=== PATIENT | female | born 1975 | race Caucasian/White ===

== ENCOUNTER → 2020-12-14 14:19 | Outpatient (CLI) | payer BC, SELFPAY ==
--- NOTE | ~2020-12-14 | MM_ITS ---
EXAMINATION: MM screening [facility] BI w shawn HISTORY: Screening TECHNIQUE: Craniocaudal and mediolateral oblique 3-D tomosynthesis images were obtained and synthetic 2-D images were generated. CAD analysis was submitted and interpreted. COMPARISON: 08/18/2017 BREAST PARENCHYMAL COMPOSITION: The breasts are almost entirely fatty. FINDINGS: There is no evidence of suspicious mass, calcification, or architectural distortion to sugg est malignancy in either breast. There has been no suspicious interval change. IMPRESSION: 1. No mammographic evidence of malignancy. 2. Recommend routine screening mammography in one year. BI-RADS Category 1: Negative Reviewed, dictated and finalized at location A.
--- NOTE | ~2020-12-14 | XR_ITS ---
EXAMINATION: XR chest 2V DATE: 12/14/2020 15:08 INDICATION: Abnormal findings on diagnostic imaging. Seizure. TECHNIQUE: Frontal and lateral views of the chest were obtained. COMPARISON: None. FINDINGS: The chest demonstrates clear lungs without pneumonia, pleural effusion, or pneumothorax. Th e heart size is normal. IMPRESSION: 1. No acute cardiopulmonary disease. Reviewed, dictated and finalized at location A.
== END ==
PROVIDERS: PCP Family Medicine; Visit Provider Physician Assistant
DX: Z12.31 Encounter for screening mammogram for malignant neoplasm of breast (principal); R93.89 Abnormal findings on diagnostic imaging of other specified body structures
CPT/HCPCS: 71046; 77063; 77067

== ENCOUNTER 2021-12-24 10:57 | Outpatient (CLI) | payer BC, SELFPAY ==
[2021-12-24 20:33] LABS: Alanine Aminotransferase 25 U/L (6-35); Albumin Level 4.6 g/dL (3.5-5.1); Alkaline Phosphatase 108 U/L (38-126); Anion Gap 9 mmol/L (8-16); Aspartate Amino Transferase 47 U/L (14-36); Bilirubin,Total 0.5 mg/dL (0.2-1.3); Blood Urea Nitrogen 12 mg/dL (7-17); Calcium 9.6 mg/dL (8.4-10.2); Carbon Dioxide 24 mmol/L (22-30); Chloride 108 mmol/L (98-107); Cholesterol 266 mg/dL (0-200); Estimated Glomerular Filt Rate > 60; Glucose 81 mg/dL (65-110); HDL Direct 47 mg/dL; Potassium 4.1 mmol/L (3.4-5.0); Sodium 141 mmol/L (137-145); Triglycerides 119 mg/dL (<150)
[2021-12-24 20:44] LABS: LDL Cholesterol Direct 179 mg/dL
== END 2021-12-24 10:58 | disposition home or self-care (01) ==
LOC: ANHGOSHLAB 10:59
PROVIDERS: PCP Emergency Medicine; Visit Provider Emergency Medicine
DX: E66.9 Obesity, unspecified (principal)
CPT/HCPCS: 36415; 80053; 80061

== ENCOUNTER → 2022-05-25 10:58 | Outpatient (CLI) | payer BC, SELFPAY ==
--- NOTE | ~2022-05-25 | US_ITS ---
Abdominal Sonogram: Real-time sonographic imaging of the abdomen was performed. Clinical History: Abdominal pain Findings: The liver appears echogenic, with no evidence of mass lesion or bile duct dilatation. Main portal vein demonstrates normal direction of flow. The spleen is normal in size without evidence of focal lesion. The gallbladder is well distended, with multiple apparent gallbladder wall polyps, wil suring up to 8 mm. The common bile duct measures 5 mm. The visualized pancreas, aorta, and IVC are u nremarkable. The right kidney measures 9.5 cm in length and the left kidney measures 10.1 cm. There is no hydronephrosis or renal calculus. Impression: Probable gallbladder wall polyps, measuring up to 8 mm in maximum diameter. Diffuse fatty infiltration of liver. Reviewed, dictated and finalized at [facility]. L COREMAKER Impression: Probable gallbladder wall polyps, measuring up to 8 mm in maximum diameter. Diffuse fatty infiltration of liver.
== END ==
PROVIDERS: PCP Emergency Medicine; Visit Provider Emergency Medicine
DX: R10.12 Left upper quadrant pain (principal); K76.0 Fatty (change of) liver, not elsewhere classified
CPT/HCPCS: 76700

== ENCOUNTER 2022-06-02 08:36 | Outpatient (CLI) | payer BC, SELFPAY ==
--- NOTE | ~2022-06-02 | NM_ITS ---
EXAMINATION: NM hepatobiliary wo pharm DATE: 06/02/2022 11:18 INDICATION: Abdominal pain COMPARISON: None. TECHNIQUE: 4.3 mCi Tc-99m mebrofenin (Choletec) was administered intravenously. Scintigraphic images of the abdomen were obtained for one hour. At the 1 hour time point, the patient drank 8 oz Ensure, and imaging was continued for 60 minutes. Gallbladder ejection fraction was calculated by the technol ogist. FINDINGS: There is normal clearance of radiotracer from the blood pool. There is homogeneous tracer u ptake by the liver. Activity progresses to the bowel and gallbladder. The gallbladder ejection fract ion (GBEF) is 30%. Note that with this technique, normal GBEF >= 33%. IMPRESSION: 1. Gallbladder ejection fraction just below the lower limits of normal consistent with gallbladder d ysfunction or chronic cholecystitis in the appropriate clinical setting. Reviewed, dictated and finalized at location D. E WATER OPERATOR IMPRESSION: 1. Gallbladder ejection fraction just below the lower limits of normal consist ent with gallbladder dysfunction or chronic cholecystitis in the appropriate cl inical setting.
== END 2022-06-02 08:37 | disposition home or self-care (01) ==
LOC: ANHIMG 08:39
PROVIDERS: PCP Emergency Medicine; Visit Provider Emergency Medicine
DX: R10.84 Generalized abdominal pain (principal)
CPT/HCPCS: 78226; A9537

== ENCOUNTER 2022-07-05 00:58 | Day surgery (SDC) | payer BC, SELFPAY ==
[2022-06-22 13:51] VITALS: BMI 35.6
[2022-07-05 08:25] VITALS: BP 116/81; PULSE 100; RESP 18; TEMP 36.3; O2SAT 99
[2022-07-05] MEDS: LACTATED RINGERS 1,000 ML 150 ML IV CONT (08:49)
--- NOTE | 2022-07-05 09:00 | P.PNAN_ITS ---
Anes - Initial Pre Proc Eval Procedure: Operation Date: 07/05/22 09:30 Proposed Procedures p Screening Colonoscopy - Max King MD Date/Time: 07/05/22 09:00 Surgeon: Max King MD Pre Op Diagnosis: neoplasm screening Patient Data Age: 47 Gender: F Height: 1.47 m Weight: 78.8 kg Last Vital Signs Temp 97.4 F L 07/05/22 08:25 Pulse 100 07/05/22 08:25 Resp 18 07/05/22 08:25 BP 116/81 07/05/22 08:25 Pulse Ox 99 07/05/22 08:25 O2 Del Method Room Air 07/05/22 08:25 Allergies Allergy/AdvReac Type Severity Reaction Status Date / Time contrast Allergy Severe Hives Uncoded 07/05/22 08:23 Home Medications Medication Instructions Recorded Confirmed Type gabapentin 100 mg capsule 100 mg PO TID 09/17/19 06/22/22 History levetiracetam 250 mg tablet 750 mg PO BID 06/22/22 06/22/22 History levothyroxine 75 mcg tablet 75 mcg PO DAILY 06/22/22 06/22/22 History lorazepam 0.5 mg tablet 0.5 mg PO BID PRN Seizures 06/22/22 06/22/22 History Patient hx anesthesia problems: none Family hx anesthesia problems: none Results Review: All pre-operative results and documents have been reviewed as part of the pre- operative evaluation. [facility] Past Medical History Medical History Hx of meningitis (~2002) Leukemia Oligodendroglioma (~2014) Papillary carcinoma of thyroid (~2008) Seizure (~2018) Surgical History Surgical History H/O brain surgery (~2018) Family History Family History Grandparent Diabetes mellitus Family history of glaucoma Carcinoma of colon Father Hypertension Social History Social History Smoking status: Never smoker Alcohol intake: never Substance use: never Substance use type: does not use Living arrangements: with family Spiritual care concerns: No Anes - Eval Final PreProcedure Day of Procedure 07/05/22 09:00 Patient weight: obese Heart: regular rate and rhythm Lungs: clear to auscultation Airway: Mallampati scale class III Neurological: alert and oriented Last oral intake: >/= 8 hours ASA classification: III Emergent: no Anesthetic plan: proceed Anesthesia type and monitoring: general GIVS and standard monitoring Results Review: All pre-operative results and documents have been reviewed as part of the pre- operative evaluation. Informed Consent: The patient's anesthetic plan and its attendant risks and benefits were discussed with the patient/family/POA. Questions were solicited and answers provided to the satisfaction of the patient/family/POA.
--- NOTE | 2022-07-05 09:15 | PM.HPGS ---
History of Present Illness History of Present Illness Consent: Risks, benefits, and alternatives have been discussed and questions answered. Patient agrees to proceed with procedure. Chief complaint: neoplasm screening Narrative: Yane Barron is a 47 year old female here for first screening colonoscopy Review of Systems Constitutional: Constitutional: Denies headache(s) and Denies weakness Eyes: Eyes: Denies blurry vision ENT: Reports Normal hearing present, Denies headache(s) and Denies neck pain Cardiovascular: Cardiovascular: Denies chest pain and Denies dyspnea Respiratory: Respiratory: Denies dyspnea Gastrointestinal: Gastrointestinal: Reports no additional gastrointestinal complaints Genitourinary: Genitourinary: Denies dysuria Musculoskeletal: Musculoskeletal: Denies neck pain Integumentary/Breasts: Skin/Breast: Denies dry skin Neurologic: Reports Normal hearing present, Denies headache(s) and Denies weakness Psychiatric: Psychiatric: Denies anxiety Endocrine: Endocrine: Denies change in body appearance Hematologic/Lymphatic: Hematologic/Lymphatic: Denies easy bleeding Allergic/Immunologic: Allergic/Immunologic: Denies urticaria PMFSH Past Medical History Medical History (Updated 07/05/22 @ 09:15 by Max King MD) Colon cancer screening Hx of meningitis (~2002) Leukemia Oligodendroglioma (~2014) Papillary carcinoma of thyroid (~2008) Seizure (~2018) Surgical History Surgical History H/O brain surgery (~2018) Family History Family History Grandparent Diabetes mellitus Family history of glaucoma Carcinoma of colon Father Hypertension Social History Social History Smoking status: Never smoker Alcohol intake: never Substance use: never Substance use type: does not use Living arrangements: with family Spiritual care concerns: No Meds Home Medications and Allergies Home Medications Medication Instructions Recorded Confirmed Type gabapentin 100 mg capsule 100 mg PO TID 09/17/19 06/22/22 History levetiracetam 250 mg tablet 750 mg PO BID 06/22/22 06/22/22 History levothyroxine 75 mcg tablet 75 mcg PO DAILY 06/22/22 06/22/22 History lorazepam 0.5 mg tablet 0.5 mg PO BID PRN Seizures 06/22/22 06/22/22 History Allergies Allergy/AdvReac Type Severity Reaction Status Date / Time contrast Allergy Severe Hives Uncoded 07/05/22 08:23 Vital Signs Vital Signs - 24 hr 07/05/22 08:25 Temperature 97.4 F L Pulse Rate 100 Respiratory Rate 18 Blood Pressure 116/81 Pulse Oximetry 99 Oxygen Delivery Room Air Exam Const: General: comfortable and no acute distress HENMT: Face/Nose/Sinus: Normal nares present Eyes: General: appearance normal, both eyes and all related structures Neck: Neck: no JVD Resp: Auscultation: clear to auscultation bilaterally Cardio: Rate: regular rate Rhythm: regular rhythm GI: Inspection: non-distended GI Palp: Yes Soft to palpation Skin: General skin exam: normal color Neuro: General: gait normal Speech: normal speech Extrem: General: normal to inspection Psych: Mental Status: mental status grossly normal Assessment and Plan Assessment and plan (1) Colon cancer screening: Code(s): Z12.11 - Encounter for screening for malignant neoplasm of colon Status: Acute Assessment and Plan: colonoscopy
[2022-07-05 09:33] VITALS: BP 98/60; PULSE 75; RESP 19; O2SAT 94
[2022-07-05 09:43] VITALS: BP 101/68; PULSE 81; RESP 18; O2SAT 93
[2022-07-05 09:53] VITALS: BP 111/70; PULSE 74; RESP 20; O2SAT 94
== END 2022-07-05 10:05 | disposition home or self-care (01) ==
PROVIDERS: PCP Emergency Medicine; Visit Provider Internal Medicine Gastroenterology
PROC: 0DJD8ZZ Inspection of Lower Intestinal Tract, Via Natural or Artificial Opening Endoscopic (ICD-10-PCS; CPT 45378; principal; 2022-07-05 09:30)
DX: Z12.11 Encounter for screening for malignant neoplasm of colon (principal); D12.3 Benign neoplasm of transverse colon; Z85.850 Personal history of malignant neoplasm of thyroid; E66.9 Obesity, unspecified; Z68.36 Body mass index [BMI] 36.0-36.9, adult
CPT/HCPCS: 45380; 88305; J2704; J7120

== ENCOUNTER → 2022-08-01 12:20 | Outpatient (CLI) | payer BC, SELFPAY ==
--- NOTE | ~2022-08-01 | MM_ITS ---
EXAMINATION: MM screening [facility] BI w shawn HISTORY: Screening mammogram TECHNIQUE: Craniocaudal and mediolateral oblique 3-D tomosynthesis images were obtained and synthetic 2-D images were generated. CAD analysis was submitted and interpreted. COMPARISON: 12/14/2020, 08/18/2017 BREAST PARENCHYMAL COMPOSITION: The breasts are almost entirely fatty. FINDINGS: No suspicious mass, calcification, or architectural distortion are identified in either anthony ast to suggest malignancy. There has been no suspicious interval change. IMPRESSION: 1. No mammographic evidence of malignancy. 2. Recommend routine screening mammography in one year. BI-RADS Category 1: Negative Reviewed, dictated and finalized at location A.
== END ==
PROVIDERS: PCP Emergency Medicine; Visit Provider Emergency Medicine
DX: Z12.31 Encounter for screening mammogram for malignant neoplasm of breast (principal)
CPT/HCPCS: 77063; 77067

== ENCOUNTER 2023-02-21 10:56 | Outpatient (RCR) | payer BC, SELFPAY ==
--- NOTE | 2023-02-21 12:01 | OPREHPOC ---
Outpatient Therapy Plan of Care This is a Multidisciplinary Plan of Care that may contain components documented by all disciplines (PT, OT, and ST.) PT Problem 1 PT Problem #1 Knowledge Deficit PT Goal 1 Goal 1* indep with HEP PT Problem 2 PT Problem #2 Impaired Strength PT Goal 1 Goal increase R LE strength to improve gait and balance skills 1* pt perform mat exercises x 20 reps with good control 2* single leg standing x 10 seconds 3* sitting ankle DF x 10 reps, same range as L ankle 4* sitting ankle circles x 10 reps with good control PT Problem 3 PT Problem #3 Impaired Functional Mobil PT Goal 1 Goal improve balance and gait skills: 1* Carrington balance score of 56/56 2* 2 minute walk test distance of 450' 3* 5 reps sit/stand time of 16 seconds
--- NOTE | 2023-02-21 12:01 | PTOPEVAL1 ---
Assessment and note entered by Maria Isabel Christianson, PT Evaluation Information Assessment Status Evaluation Diagnosis musculoskeletal disorder, R leg weakness Onset about 6 months Subjective Information gradually more weakness in R leg, after each seizure, feel like leg is weaker; ACTIVITY: live alone, is indep with home tasks, except yard mowing and driving; on disability, not working; do not use assistive device for walking; no falls do not do any fitness exercises; GOAL: better balance; Reported Pain Level Pain Score Self Report Additional Pain Score Comments no pain in her leg, but it feels weighted/heavy; have to concentrate with walking or will trip over R foot; Assessment PT Clinical Summary Ita has the diagnosis of R LE weakness, musculoskeletal disorder. She has history of seizures, brain cancer, radiation and chemotherapy Seizures occur in her R leg up to her R trunk. She is taking meds, but continues to have seizures lasting 20-30 minutes. She is indep with in home tasks and does not work or drive. She does not perform fitness exercises at home. With the evaluation: she has weakness and decreased motor control of R LE, walking with flat foot pattern and decreased control with placement of R leg with stepping forward; Carrington balance score of 51/56; single leg standing R 2/ L 5 seconds; decreased R ankle DF and ankle [place] ability; 2 minute walking test distance of 375'. Skilled PT services are indicated to increase R LE strength, gait and balance skills, to improve mobility and education for home exercises and gait safety. In discussion of the plan of care, with recommendation for 2x/wk for 4 weeks, pt is not sure she wants to come back. She does not drive and would have to have her parents bring her here. Discussed with her [employer], [employer] as options for transportation--she was not interested in using them. She wants to do the exercises on her own and will call if s
--- NOTE | 2023-04-03 10:07 | PTOPDC ---
Assessment and note entered by Maria Isabel Christianson, PT Discharge Information Assessment Status Discharge - Pt Not Present Diagnosis musculoskeletal disorder, R leg weakness Onset about 6 months Assessment PT Clinical Summary PHYSICAL THERAPY DISCHARGE Yane attended the PT evaluation on Feb 21 and did not return for any further treatment. She will be discharged from PT at this time. The goals were not addressed. Plan of Care PT Services Indicated No
== END 2023-04-03 11:55 | disposition home or self-care (01) ==
LOC: ANHPT 10:56
PROVIDERS: PCP Emergency Medicine; Visit Provider Emergency Medicine
DX: R29.898 Other symptoms and signs involving the musculoskeletal system (principal); R56.9 Unspecified convulsions
CPT/HCPCS: 97110; 97161

== ENCOUNTER 2023-11-30 13:29 | Outpatient (CLI) | payer MEDICARE, SELFPAY ==
--- NOTE | ~2023-11-30 | MM_ITS ---
EXAMINATION: MM screening [facility] BI w shawn HISTORY: Screening TECHNIQUE: Craniocaudal and mediolateral oblique 3-D tomosynthesis images were obtained and synthetic 2-D images were generated. CAD analysis was submitted and interpreted. COMPARISON: Comparison to multiple prior studies sequentially, with oldest reviewed study dated 07/2017. BREAST PARENCHYMAL COMPOSITION: Not Dense. The breasts are almost entirely fatty. FINDINGS: There is no evidence of suspicious mass, calcification, or architectural distortion to sugg est malignancy in either breast. There has been no suspicious interval change. IMPRESSION: 1. No mammographic evidence of malignancy. 2. Recommend routine screening mammography in one year. BI-RADS Category 1: Negative Reviewed, dictated and finalized at location B.
== END 2023-11-30 13:30 ==
LOC: MICIMG 13:31
PROVIDERS: Visit Provider Emergency Medicine
DX: Z12.31 Encounter for screening mammogram for malignant neoplasm of breast (principal)
CPT/HCPCS: 77063; 77067

== ENCOUNTER 2024-02-17 10:02 | Outpatient (CLI) | payer MEDICARE, SELFPAY ==
--- NOTE | ~2024-02-17 | US_ITS ---
US abdomen limited DATE: 02/17/2024 10:51 INDICATION: Left upper quadrant abdominal pain radiating to left back TECHNIQUE: Imaging was performed at the left upper quadrant. COMPARISON: 05/25/2022 complete abdominal ultrasound examination FINDINGS: The left kidney measures approximately 9.5 cm length, within normal range. No splenic mass lesion is noted. The left kidney measures approximately 10.5 cm length. No left renal mass lesion or hydronephrosis is evident. IMPRESSION: No significant abnormality detected Reviewed, dictated and finalized at Location A. Reviewed, dictated and finalized at location A.
== END 2024-02-17 10:03 | disposition home or self-care (01) ==
LOC: MICIMG 10:02
PROVIDERS: PCP Student in an Organized Health Care Education/Training Program; Visit Provider Student in an Organized Health Care Education/Training Program
DX: R10.12 Left upper quadrant pain (principal); M54.9 Dorsalgia, unspecified
CPT/HCPCS: 76705

== ENCOUNTER 2024-12-20 13:58 | Outpatient (CLI) | payer MEDICARE, SELFPAY ==
--- NOTE | ~2024-12-20 | MM_ITS ---
EXAMINATION: MM screening [facility] BI w shawn HISTORY: Screening TECHNIQUE: Craniocaudal and mediolateral oblique 3-D tomosynthesis images were obtained and synthetic 2-D images were generated. CAD analysis was submitted and interpreted. COMPARISON: Mammograms from 11/30/2023 and 08/01/2022 BREAST PARENCHYMAL COMPOSITION: Not Dense: The breasts are almost entirely fatty. FINDINGS: There is no evidence of suspicious mass, calcification, or architectural distortion to suggest malignancy in either breast. [There has been no significant interval change. IMPRESSION: 1. No mammographic evidence of malignancy. Recommend routine screening mammography in one year. BI-RADS Category 1: Negative Reviewed, dictated, and finalized at Location A. Reviewed, dictated and finalized at location Q. IMPRESSION: 1. No mammographic evidence of malignancy. Recommend routine screening mammogra phy in one year. BI-RADS Category 1: Negative
== END 2024-12-20 13:59 | disposition home or self-care (01) ==
PROVIDERS: Visit Provider Nurse Practitioner Family
DX: Z12.31 Encounter for screening mammogram for malignant neoplasm of breast (principal)
CPT/HCPCS: 77063; 77067

== ENCOUNTER 2025-04-02 11:42 | Outpatient (CLI) | payer MEDICARE, SELFPAY ==
[2025-04-02 12:33] LABS: Hematocrit 39.4 % (37.0-47.0); Hemoglobin 12.7 g/dL (12.0-15.0); Mean Corpuscular HGB Conc 32.2 g/dl (32-36); Mean Corpuscular Hemoglobin 29.1 pg (26-34); Mean Corpuscular Volume 90.2 fl (80-100); Platelet Count Result 364 k/mm3 (150-375); Red Blood Count 4.37 M/mm3 (4.2-5.4); White Blood Count 5.4 K/mm3 (4.5-10.0)
[2025-04-02 12:52] LABS: Alanine Aminotransferase 19 U/L (6-35); Albumin Level 4.4 g/dL (3.5-5.1); Alkaline Phosphatase 92 U/L (38-126); Anion Gap 8 mmol/L (4-12); Aspartate Amino Transferase 23 U/L (14-36); Bilirubin,Total 0.5 mg/dL (0.2-1.3); Blood Urea Nitrogen 11 mg/dL (7-17); Calcium 9.4 mg/dL (8.4-10.2); Carbon Dioxide 23 mmol/L (22-30); Chloride 109 mmol/L (98-107); Cholesterol 215 mg/dL (0-200); Estimated Glomerular Filt Rate > 60; Glucose 88 mg/dL (65-110); HDL Direct 43 mg/dL; Potassium 3.7 mmol/L (3.4-5.0); Sodium 140 mmol/L (137-145); Total Protein 7.6 g/dL (6.3-8.2); Triglycerides 116 mg/dL (<150)
--- OUTSIDE RECORDS SUMMARY | 2025-04-02 13:57 | XMS_ITS | Encounter Summary ---
Author Organization [facility] Address [address] [place] [address] Care Team Providers Care Finishing Powder Press Operator Name Role Phone Regan Jade MD Primary Care Provider [phone] Reason for Visit * Reason Comments Medication Refill Encounter Details Date Type Department Care Team (Late st Contact Info) Description 06/19/2019 Refill [facility] [place] [facility] [address] [place] [address] Alysia Smyth MD [address] [address] Social History Tobacco Use Types Packs/Day Years Used Date Smoking Tobacco: Never Smokeless Tobacco: Never Alcohol Use Standard Drinks/Week Comments Yes 0 (1 standard drink = 0.6 oz pur e alcohol) occasionally Comments No Sex and Gender Information Value Date Recorded Sex Assigned at Not on file Legal Sex 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 Gender Identity Not on file Sexual Orientation Not on file documented as of this encounter Miscellaneous Notes * Telephone Encounter - Mari Wick - 06/19/2019 12:43 PM CST Last Office Visit: 01/08/2019 Last Ordered: 01/08/2019 #90 with 2 refills DESIGN INTERN documented in this encounter Plan of Treatment Upcoming Encounters Date Type Department Care Team (Late st Contact Info) Description 11/24/2025 11:15 AM CDT Office Visit [facility]ocrinology [address] [place] [address] Brian Rowley MD [address] [place] [address] 01/09/2026 11:00 AM CDT Office Visit [facility] [address] [place] [address] Deja Bush MD [address] [place] [address] documented as of this encounter Visit Diagnoses Not on filedocumented in this encounter Additional Health Concerns Infection Onset Date Last Indicated Resolved Time R/O C. diff 07/20/2024 07/20/2024 07/21/2024 7:30 AM CDT R/O C. diff 07/21/2024 07/21/2024 07/22/2024 7:30 AM CDT documented as of this encounter Care Teams Finishing Powder Press Operator Relationship Specialty Start Date End Date Regan Jade MD [address] [place] [address] PCP - General Family Practice 07/20/24 11/20/24 wander wray Nurse Practitioner Nurse Practitioner Adult Health 04/20/24 documented as of this encounter
--- OUTSIDE RECORDS SUMMARY | 2025-04-02 13:57 | XMS_ITS | Encounter Summary ---
Author Organization [facility] Address [address] [place] [address] Care Team Providers Care Wheel Alignment Mechanic Name Role Phone Regan Jade MD Primary Care Provider [phone] Encounter Details Date Type Department Care Team (Latest Contact Info) Description 08/21/2002 Inpatient Historical [facility] [employer] Ángel Adame Matt Rashaun Gay MD [address] [address] -x0 (Work) BENIGN SHELLY CEREBR MENINGES (CMS/HCC) (Primary Dx) Social History Tobacco Use Types Packs/Day Years Used Date Smoking Tobacco: Never Assessed Comments Unknown Sex and Gender Information Value Date Recorded Sex Assigned at Not on file Legal Sex Female 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 Gender Identity Not on file Sexual Orientation Not on file documented as of this encounter Plan of Treatment Upcoming Encounters Date Type Department Care Team (Late st Contact Info) Description 11/24/2025 11:15 AM CDT Office Visit [facility] Endocrinology [address] [place] [address] Brian Rowley MD [address] [place] [address] 01/09/2026 11:00 AM CDT Office Visit [facility] Neu[facility] [address] [place] [address] Deja Bush MD [address] [place] [address] documented as of this encounter Visit Diagnoses Diagnosis Benign neoplasm of cerebral meninges (CMS/HCC)- Primary Benign neoplasm of cerebral meninges documented in this encounter Additional Health Concerns Infection Onset Date Last Indicated Resolved Time R/O C. diff 07/20/2024 07/20/2024 07/21/2024 7:30 AM CDT R/O C. diff 07/21/2024 07/21/2024 07/22/2024 7:30 AM CDT documented as of this encounter Care Teams Wheel Alignment Mechanic Relationship Specialty Start Date End Date Regan Jade MD [address] [place] [id number] PCP - General Family Practice 07/20/24 11/20/24 wander wray Nurse Practitioner Nurse Practitioner Adult Health 04/20/24 documented as of this encounter
--- OUTSIDE RECORDS SUMMARY | 2025-04-02 13:57 | XMS_ITS | Encounter Summary ---
Author Organization [facility] Address [address] [place] [address] Care Team Providers Care Hand Collator Name Role Phone Regan Jade MD Primary Care Provider [phone] Encounter Details Date Type Department Care Team (Late st Contact Info) Description 10/30/2003 Outpatient Historical [facility] DEPT Rashaun Gay MD [address] [address] -x0 (Work) BENIGN SHELLY CEREBR MENINGES (CMS/HCC) (Primary Dx) Social History Tobacco Use Types Packs/Day Years Used Date Smoking Tobacco: Never Assessed Comments Unknown Sex and Gender Information Value Date Recorded Sex Assigned at Not on file Legal Sex 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 Gender Identity Not on file Sexual Orientation Not on file documented as of this encounter Plan of Treatment Upcoming Encounters Date Type Department Care Team (Late st Contact Info) Description 11/24/2025 11:15 AM CDT Office Visit [facility] Endocrinology [address] [place] [address] Brian Rowley MD [address] [place] [address] 01/09/2026 11:00 AM CDT Office Visit [facility] Neurology [address] [place] [address] Deja Bush MD [address] [place] [address] documented as of this encounter Visit Diagnoses Diagnosis Benign neoplasm of cerebral meninges (CMS/HCC)- Primary Benign neoplasm of cerebral meninges documented in this encounter Additional Health Concerns Infection Onset Date Last Indicated Resolved Time R/O C. diff 07/20/2024 07/20/2024 07/21/2024 7:30 AM CDT R/O C. diff 07/21/2024 07/21/2024 07/22/2024 7:30 AM CDT documented as of this encounter Care Teams Hand Collator Relationship Specialty Start Date End Date Regan Jade MD [address] [place] [address] PCP - General Family Practice 07/20/24 11/20/24 wander wray Nurse Practitioner Nurse Practitioner Adult Health 04/20/24 documented as of this encounter
--- OUTSIDE RECORDS SUMMARY | 2025-04-02 13:57 | XMS_ITS | Clinical Summary ---
Author Organization [facility] Address [address] [place] [address] Care Team Providers Care Nurse Licensed Practical Name Role Phone Philippe Patino MD Primary Care Provider [phone] Source Comments [facility],non-owned Affiliates and Associated Physician Practices is amultiple site organization consisting of ambulatory clinics and hospital sitesin [place], [place], [place] and [place]. This disclosure is being madepursuant to the Care Everywhere program and may not contain all information available regarding this patient. Last updated 18.[employer] [facility] Allergies Active Allergy Reactions Criticality Noted Date Comments Contrast-Iodinated Agents For Ct/Other Skin Reactions High 01/09/2015 Medications * Be aware that medications may not be up to date on this document. Alwaysverify current medications with the patient. 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, Grade III Family History Medical History Relation Name Comments Hypertension Father 69 Status: Alive None Known Mother 68 Status: Alive Heart Disease Paternal Grandfather 86 Status : Cancer Paternal Grandmother 81 cervica l; Status: Diabetes Paternal Grandmother 81 type II None Known Sister 41 Status: Alive Relation Name Status Comments Father 69 Mother 68 Paternal Grandfather 86 Paternal Grandmother 81 Sister 41 Social History Tobacco Use Types Packs/Day Years Used Date Smoking Tobacco: Never Smokeless Tobacco: Never Alcohol Use Standard Drinks/Week Comments Yes 0 (1 standard drink = 0.6 oz pur e alcohol) Comments No Sex and Gender Information Value Date Recorded Sex Assigned at Not on file 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 Gender Identity Not on file Sexual Orientation Not on file Last Filed Vital Signs Vital Sign Reading Time Taken Comments Blood Pressure 119/73 08/17/2017 10:14 AM CDT Pulse 70 12/27/2016 10:54 AM CDT Temperature 37.1 C (98.8 F) 08/17/2017 10:14 AM CDT Respiratory Rate 16 12/27/2016 10:5 4 AM CDT Oxygen Saturation 99% 04/13/2015 11: 21 AM RECREATIONAL THERAPY TECHNICIAN Inhaled Oxygen Concentration - - Weight 77.4 kg (170 lb 11.2 oz) 018 10:14 AM CDT Height 147.3 cm (4' 10) 08/17/2017 10: 14 AM CDT Body Mass Index 35.68 08/17/2017 10:14 AM CDT Plan of Treatment Health Maintenance Due Date Last Done Comments COLOGUARD (AGES 45-75) - COLON CA SCREENING 1975 COLON MONITORING 1975 COLONOSCOPY - COLON CA SCREENING 1975 CT COLONOGRAPHY - COLON CA SCREENING 1975 Colorectal Cancer Screening 1975 FIT - COLON CA SCREENING 1975 FLEX SIG - COLON CA SCREENING 1975 LIPID TESTING 1975 MAMMOGRAM 1975 HIV SCREENING 1990 DTAP/TDAP/TD VACCINES (1 - Tdap) 1994 HEPATITIS B VACCINE (1 of 3 - 19+ 3-dose series) 1994 SCREENING FOR DIABETES 12/28/2019 7, 06/22/2016, 12/30/2015, Additional history exists DEPRESSION SCREENING 04/17/2024 COVID-19 VACCINE ( - 2024- season) 2024 INFLUENZA VACCINE (#1) 2024 ZOSTER VACCINE (1 of 2) 2025 HEPATITIS C SCREENING Completed 01/12/2015 HIB VACCINE Aged Out No longer eligi ble based on patient's age to complete this topic HPV VACCINE Aged Out No longer eligi ble based on patient's age to complete this topic MENINGOCOCCAL (Group B) VACCINE SHARED DECISION-MAKING Aged Out No longer eligible based on patient's age to complete this topic MENINGOCOCCAL GROUPS A/C/Y/W VACCINE Aged Out No longer eligible based on patient's age to complete this topic Procedures Procedure Name Priority Date/Time Associated Diagnosis Comments COMPREHENSIVE METABOLIC PANEL Routine 12/27/2016 10:49 AM CDT HEPATITIS B + C PANEL Routine 01/12/2015 10:13 AM CDT from Last 3 Months or Most Recently Relevant to Health Maintenance Results * COMPREHENSIVE METABOLIC PANEL (12/27/2016 10:49 AM CDT) Glucose 80 65 - 99 mg/dL [facility] BUN 11 6 - 24 mg/dL [facility] Creatinine 0.66 0.57 - 1.00 mg/dL [facility] eGFR non- 110 >59 mL/min/1.7 3 [facility] eGFR 127 >59 mL/min/1.7 3 [facility] BUN/Creatinine Ratio 17 9 - 23 [facility] Sodium 144 134 - 144 mmol/L [facility] Potassium 4.7 3.5 - 5.2 mmol/L [facility] Chloride 104 96 - 106 mmol/L [facility] CO2 21 18 - 29 mmol/L [facility] Calcium 9.1 8.7 - 10.2 mg/dL [facility] Protein Total 7.0 6.0 - 8.5 g/dL [facility] Albumin 4.1 3.5 - 5.5 g/dL [facility] Globulin Total 2.9 1.5 - 4.5 g/dL [facility] Albumin/Globulin Ratio 1.4 1.2 - 2.2 [facility] Bilirubin Total 0.4 0.0 - 1.2 mg/dL [facility] ([facility]) Alkaline Phosphatase 92 39 - 117 IU/L [facility] ([facility]) AST 14 0 - 40 IU/L [facility] ([facility]) ALT 13 0 - 32 IU/L [facility] ([facility]) Blood specimen (specimen) BLOOD SPECIMEN / Unknown 12/27/2016 10:49 AM CDT 12/27/2016 Narrative [facility] ([facility]) - 12/28/2016 3:08 AM CDT Performed at: [facility] [id number] Program Engineer: Rafy Noriega PhD, Phone: [phone] us Joann Lal MD LAB - CHEMISTRY ORDERABLES Final Result [facility] ([facility]) [address] [place] [address], [facility] * HEPATITIS B + C PANEL (01/12/2015 10:13 AM CDT) Pathologist [facility] Hepatitis B Virus Surface Antigen Screen Negative Negative [facility] ([facility]) Hepatitis Be Virus Antigen Negative Negative [facility] ([facility]) Hepatitis B Core Virus Antibody IgM Negative Negative [facility] ([facility]) Hepatitis B Core Virus Antibody Total Negative Negative [facility] ([facility]) Hepatitis Be Virus Antibody Negative Negative [facility] ([facility]) Hepatitis B Virus Surface Antibody Non Reactive [facility] ([facility]) Comment: Non Reactive: Inconsistent with immunity, less than 10 mIU/mL Reactive: Consistent with immunity, greater than 9.9 mIU/mL Hepatitis C Antibody <0.1 0.0 - 0.9 s/co ratio [facility] ([facility]) 01/12/2015 10:1 3 AM CDT 01/12/2015 12:08 PM CDT Narrative [facility] ([facility]) - 01/13/2015 8:11 PM CDT Performed at: [facility] [id number] Program Engineer: Rafy Noriega PhD, Phone: [phone] us Lety Haddad TUBE PULLER-REFINERY OPERATOR [employer] LAB - SEROLOGY ORDERAB LES Final Result [facility]) [address] [place] [address] from Last 3 Months or Most Recently Relevant to Health Maintenance Insurance [facility] Care Teams Nurse Licensed Practical Relationship Specialty [place] [id number] [place] [phone] PCP - General 07/28/22
--- OUTSIDE RECORDS SUMMARY | 2025-04-02 13:57 | XMS_ITS | Encounter Summary ---
Author Organization [facility] Address 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) Social History Tobacco Use Types Packs/Day Years Used Date Smoking Tobacco: Never Assessed Comments Unknown Sex and Gender Information Value Date Recorded Sex Assigned at Not on file 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 Gender Identity Not on file Sexual Orientation Not on file documented as of this encounter Plan of Treatment Upcoming Encounters Date Type Department Care Team (Late st Contact Info) Description 11/24/2025 11:15 AM CDT Office Visit [facility] Endocrinology [address] [facility] [address] [place] [address] Brian Rowley MD [address] [facility] [address] [place] [address] 01/09/2026 11:00 AM CDT Office Visit [facility] Neurology [address] [place] [address] Deja Bush MD [address] [place] [address] documented as of this encounter Visit Diagnoses Diagnosis Benign neoplasm of cerebral meninges (CMS/HCC)- Primary Benign neoplasm of cerebral meninges documented in this encounter Additional Health Concerns Infection Onset Date Last Indicated Resolved Time R/O C. diff 07/20/2024 07/20/2024 07/21/2024 7:30 AM CDT R/O C. diff 07/21/2024 07/21/2024 07/22/2024 7:30 AM CDT documented as of this encounter Care Teams Piping Design Specialist Relationship Specialty Start Date End Date Regan Jade MD [address] [place] [address] PCP - General Family Practice 07/20/24 11/20/24 wander wray Nurse Practitioner Nurse Practitioner Adult Health 04/20/24 documented as of this encounter
--- OUTSIDE RECORDS SUMMARY | 2025-04-02 13:57 | XMS_ITS | Encounter Summary ---
Author Organization [facility] Address [address] [place] [address] Care Team Providers Care Certified Rehabilitation Counselor Name Role Phone Regan Jade MD Primary Care Provider [phone] Encounter Details Date Type Department Care Team (Late st Contact Info) Description 10/09/2002 Outpatient Historical HIS MRI DEPT Rashaun Gay MD [address] [facility] [address] [address] -x0 (Work) SURGERY FOLLOWUP, OTHER (Primary Dx) Social History Tobacco Use Types Packs/Day Years Used Date Smoking Tobacco: Never Assessed Comments Unknown Sex and Gender Information Value Date Recorded Sex Assigned at Not on file 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 Gender Identity Not on file Sexual Orientation Not on file documented as of this encounter Plan of Treatment Upcoming Encounters Date Type Department Care Team (Late st Contact Info) Description 11/24/2025 11:15 AM CDT Office Visit [facility] Endocrinology [address] [facility] [address] [place] [address] Brian Rowley MD [address] [facility] [address] [place] [address] 01/09/2026 11:00 AM CDT Office Visit [facility] Neurology [address] [facility] [address] [place] [address] Deja Bush MD [address] [place] [address] documented as of this encounter Visit Diagnoses Diagnosis Follow-up examination, following other surgery- Primary documented in this encounter Additional Health Concerns Infection Onset Date Last Indicated Resolved Time R/O C. diff 07/20/2024 07/20/2024 07/21/2024 7:30 AM CDT R/O C. diff 07/21/2024 07/21/2024 07/22/2024 7:30 AM CDT documented as of this encounter Care Teams Certified Rehabilitation Counselor Relationship Specialty Start Date End Date Regan Jade MD [address] [place] [address] PCP - General Family Practice 07/20/24 11/20/24 wander wray Nurse Practitioner Nurse Practitioner Adult Health 04/20/24 documented as of this encounter
--- OUTSIDE RECORDS SUMMARY | 2025-04-02 13:57 | XMS_ITS | Encounter Summary ---
Author Organization [facility] Address [address] [place] [address] Care Team Providers Care Rn Appeals Name Role Phone Regan Jade MD Primary Care Provider [phone] Reason for Visit * Reason Onset Date Comments Medication Assistance 08/06/2024 Encounter Details Date Type Department Care Team (Late st Contact Info) Description 08/06/2024 Telephone [facility] [address] [place] [address] Deja Bush MD [email or web address] [place] [address] Medication Assistance Social History Tobacco Use Types Packs/Day Years Used Date Smoking Tobacco: Never Smokeless Tobacco: Never Alcohol Use Standard Drinks/Week Comments Not Currently 0 (1 standard drink = 0.6 oz pur e alcohol) occasionally Feeling Safe Answer Date Recorded Are you in a relationship wi th someone who hurts you emotionally and/or physically? No 07/20/2024 Food Insecurity Answer Date Recorded Patient needs follow up regardin 08/07/2024 Transportation Needs Answer Date Record ed Patient needs follow up regardin 08/07/2024 Housing Stability Answer Date Recorded Social/Environmental Concerns No concerns Utility Needs Answer Date Recorded Patient needs follow up regardin 08/07/2024 Comments No Sex and Gender Information Value Date Recorded Sex Assigned at Not on file Legal Sex Female 5:21 AM ENGAGEMENT MGR Gender Identity Not on file Sexual Orientation Not on file documented as of this encounter Miscellaneous Notes * Telephone Encounter - Gracia Ojeda - 08/09/2024 9:56 AM CDT Patient called stating that while she was in the hospital, she was taking four tablets of Keppra instead of three. Patient would like to know if she can go back to taking three now that she has been discharged from the hospital. * Telephone Encounter - Alba Saavedra - 08/07/2024 3:30 PM CDT Patient called back. * Telephone Encounter - Lisy Herrera - 08/06/2024 10:31 AM CDT Pt called and wanted to know when can she three Keppra instead of four. documented in this encounter Plan of Treatment Upcoming Encounters Date Type Department Care Team (Late st Contact Info) Description 11/24/2025 11:15 AM CDT Office Visit [facility] Endocrinology [address] [facility] [address] [place] [address] Brian Rowley MD [address] [facility] [address] [place] [address] 01/09/2026 11:00 AM CDT Office Visit [facility] Neurology [address] [facility] [address] [place] [address] Deja Bush MD [address] [facility] [address] [place] [address] documented as of this encounter Visit Diagnoses Not on filedocumented in this encounter Care Teams Rn Appeals Relationship Specialty Start Date End Date Regan Jade MD [address] [place] [address] PCP - General Family Practice 07/20/24 11/20/24 wander wray Nurse Practitioner Nurse Practitioner Adult Health 04/20/24 documented as of this encounter
--- OUTSIDE RECORDS SUMMARY | 2025-04-02 13:57 | XMS_ITS | Encounter Summary ---
Author Organization [facility] Address [address] [place] [address] Care Team Providers Care Service Operations Manager Name Role Phone Regan Jade MD Primary Care Provider [phone] Encounter Details Date Type Department Care Team (Late st Contact Info) Description 04/21/2003 Outpatient Historical HIS MRI DEPT Rashaun Gay MD [address] [facility] [address] [address] -x0 (Work) BENIGN SHELLY CEREBR MENINGES (CMS/HCC) (Primary Dx) Social History Tobacco Use Types Packs/Day Years Used Date Smoking Tobacco: Never Assessed Comments Unknown Sex and Gender Information Value Date Recorded Sex Assigned at Not on file 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 Gender Identity Not on file Sexual Orientation Not on file documented as of this encounter Plan of Treatment Upcoming Encounters Date Type Department Care Team (Late st Contact Info) Description 11/24/2025 11:15 AM CDT Office Visit [facility] Endocrinology [address] [facility] [address] [place] [address] Brian Rowley MD [address] [facility] [address] [place] [address] 01/09/2026 11:00 AM CDT Office Visit [facility] Neurology [address] [place] [address] Deja Bush MD [address] [place] [address] documented as of this encounter Visit Diagnoses Diagnosis Benign neoplasm of cerebral meninges (CMS/HCC)- Primary Benign neoplasm of cerebral meninges documented in this encounter Additional Health Concerns Infection Onset Date Last Indicated Resolved Time R/O C. diff 07/20/2024 07/20/2024 07/21/2024 7:30 AM CDT R/O C. diff 07/21/2024 07/21/2024 07/22/2024 7:30 AM CDT documented as of this encounter Care Teams Service Operations Manager Relationship Specialty Start Date End Date Regan Jade MD [address] [place] [address] PCP - General Family Practice 07/20/24 11/20/24 wander wray Nurse Practitioner Nurse Practitioner Adult Health 04/20/24 documented as of this encounter
--- OUTSIDE RECORDS SUMMARY | 2025-04-02 13:57 | XMS_ITS | Encounter Summary ---
Author Organization [facility] Address [address] [place] [address] Care Team Providers Care Humidifier Attendant Name Role Phone Regan Jade MD Primary Care Provider [phone] Encounter Details Date Type Department Care Team (Late st Contact Info) Description 10/31/2005 Outpatient Historical HIS MRI DEPT Rashaun Gay MD [address] 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 [address] [place] [address] 01/09/2026 11:00 AM CDT Office Visit [facility] Neurology [address] [facility] [address] [place] [address] Deja Bush MD [address] [place] [address] documented as of this encounter Visit Diagnoses Diagnosis Follow-up examination, following other surgery- Primary documented in this encounter Additional Health Concerns Infection Onset Date Last Indicated Resolved Time R/O C. diff 07/20/2024 07/20/2024 07/21/2024 7:30 AM CDT R/O C. diff 07/21/2024 07/21/2024 07/22/2024 7:30 AM CDT documented as of this encounter Care Teams Humidifier Attendant Relationship Specialty Start Date End Date Regan Jade MD [address] [place] [address] PCP - General Family Practice 07/20/24 11/20/24 wander wray Nurse Practitioner Nurse Practitioner Adult Health 04/20/24 documented as of this encounter
--- OUTSIDE RECORDS SUMMARY | 2025-04-02 13:57 | XMS_ITS | Clinical Summary ---
Author Organization [facility] Address [facility] [place] [address] Care Team Providers Care Gage Designer Name Role Phone Regan Jade MD Primary Care Provider [phone] Allergies Active Allergy Reactions Criticality Noted Date Comments Gadoteridol Hives High 08/29/2019 Hydrocodone-Acetaminoph en Nausea and Vomiting Medium 09/23/2019 Immediate/severe vomiting Iodinated Contrast Media Hives Medium 01/09/2015 Iodine Hives Medium 07/25/2014 Medications gabapentin 100 MG capsule Take 100 mg by mouth 3 (three) times daily. 1 Active levothyroxine 100 MCG tablet Take 100 mcg by mouth daily. 1 Active dexamethasone 4 MG tablet Take 4 mg by mouth see administration instructions. Take 4mg 1 hour before treatment Active levETIRAcetam 500 MG tablet Take 1 tablet (500 mg total) by mouth 2 (two) times daily. 60 tablet 1 Active Social History Tobacco Use Types Packs/Day Years Used Date Smoking Tobacco: Never Smokeless Tobacco: Never Alcohol Use Standard Drinks/Week Comments No 0 (1 standard drink = 0.6 oz pur e alcohol) AUDIT-C Answer Date Recorded Frequency of Alcohol Consumption Never 10/12/2018 Average Number of Drinks Not on file 019 Frequency of Binge Drinking Not on file 09/16 Comments No Sex and Gender Information Value Date Recorded Sex Assigned at Not on file Legal Sex Female 10:25 AM CDT Gender Identity Not on file Sexual Orientation Not on file Last Filed Vital Signs Vital Sign Reading Time Taken Comments Blood Pressure 129/68 10/28/2020 10:17 AM CDT Pulse 71 10/28/2020 10:17 AM CDT Temperature 36.9 C (98.5 F) 10/26/2020 8:26 PM CDT Respiratory Rate 18 10/28/2020 10:17 AM CDT Oxygen Saturation 100% 10/28/2020 10:17 AM CDT Inhaled Oxygen Concentration - - Weight 80.8 kg (178 lb 2.1 oz) 10/26/2020 8:26 P M CDT Height 147.3 cm (4' 10) 10/26/2020 8:26 PM CDT Body Mass Index 37.23 10/26/2020 8:26 PM CDT Plan of Treatment Health Maintenance Due Date Last Done Comments Cervical Cancer Screening Pa p Smear (Age 30 to 64) Every 3 Years 1975 Colorectal Cancer Screening Colonoscopy (10 Years) 1975 Annual Physical 1978 Hepatitis C 1993 DTaP, Tdap and Td Vaccines ( 1 - Tdap) 1994 Hepatitis B Vaccines (1 of 3 - 19+ 3-dose series) 1994 Cervical Cancer Screening Pa p with HPV Testing (Age 30 to 64) Every 5 Years 2005 Cervical Cancer Screening [facility] HPV 2005 Mammogram Screening 2015 COVID-19 Vaccine (3 - 2024-2 6 season) 2024 07/10/2020, 06/12/2020 Influenza Adult (#1) 2025 02/16/2020 Hepatitis A Vaccines Aged Out No long er eligible based on patient's age to complete this topic Meningococcal B Vaccine Aged Out No l onger eligible based on patient's age to complete this topic Meningococcal Vaccine Aged Out No maria del carmen santy eligible based on patient's age to complete this topic Pneumococcal Vaccine: Pediatrics (0 to 5 Years) and At-Risk Patients (6 to 49 Years) Aged Out No longer eligible b ased on patient's age to complete this topic RSV Immunizations Under 20 Months Aged Out No longer eligible b ased on patient's age to complete this topic Insurance [place] [address] Care Teams Gage Designer Relationship Specialty Start Date End Date Regan Jade MD [address] [place] [address] PCP - General FAMILY PRACTICE 10/12/18
--- OUTSIDE RECORDS SUMMARY | 2025-04-02 13:57 | XMS_ITS | Encounter Summary ---
Author Organization [facility] Address [address] [place] [address] Care Team Providers Care Lead Technologist In Cytogenetics Name Role Phone Regan Jade MD Primary Care Provider [phone] Encounter Details Date Type Department Care Team (Late st Contact Info) Description 10/22/2004 Outpatient Historical [facility] MRI DEPT Rashaun Gay MD [address] [address] -x0 (Work) BENIGN SHELLY CEREBR MENINGES (CMS/HCC) (Primary Dx) Social History Tobacco Use Types Packs/Day Years Used Date Smoking Tobacco: Never Assessed Comments Unknown Sex and Gender Information Value Date Recorded Sex Assigned at Not on file 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 Gender Identity Not on file Sexual Orientation Not on file documented as of this encounter Plan of Treatment Upcoming Encounters Date Type Department Care Team (Late st Contact Info) Description 11/24/2025 11:15 AM CDT Office Visit [facility] Endocrinology [address] [place] [address] Brian Rowley MD [address] [place] [address] 01/09/2026 11:00 AM CDT Office Visit [facility] Neurology [address] [place] [address] Deja Bush MD [address] [place] [address] documented as of this encounter Visit Diagnoses Diagnosis Benign neoplasm of cerebral meninges (CMS/HCC)- Primary Benign neoplasm of cerebral meninges documented in this encounter Additional Health Concerns Infection Onset Date Last Indicated Resolved Time R/O C. diff 07/20/2024 07/20/2024 07/21/2024 7:30 AM CDT R/O C. diff 07/21/2024 07/21/2024 07/22/2024 7:30 AM CDT documented as of this encounter Care Teams Lead Technologist In Cytogenetics Relationship Specialty Start Date End Date Regan Jade MD [address] [place] [address] PCP - General Family Practice 07/20/24 11/20/24 wander wray Nurse Practitioner Nurse Practitioner Adult Health 04/20/24 documented as of this encounter
--- OUTSIDE RECORDS SUMMARY | 2025-04-02 13:57 | XMS_ITS | Encounter Summary ---
Author Organization [facility] Address [address] [place] [address] Care Team Providers Care Gre Tutor Name Role Phone Unavailable Primary Care Provider Unavailabl e Encounter Details Date Type Department Care Team (Late Contact Info) Description 04/01/2025 External Device Data [facility] ABSTRACTION Provider, Abstract NO ADDRESS ON FILE Social History Tobacco Use Types Packs/Day Years Used Date Smoking Tobacco: Never Smokeless Tobacco: Never Alcohol Use Standard Drinks/Week Comments Not Currently 0 (1 standard drink = 0.6 oz pur e alcohol) occasionally Feeling Safe Answer Date Recorded Are you in a relationship wi th someone who hurts you emotionally and/or physically? 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 Gender Identity Not on file Sexual Orientation Not on file documented as of this encounter Plan of Treatment Upcoming Encounters Date Type Department Care Team (Late Contact Info) Description 11/24/2025 11:15 AM CDT Office Visit [facility] Endocrinology [address] [place] [address] Brian Rowley MD [address] [place] [address] 01/09/2026 11:00 AM CDT Office Visit [facility] Neurology [address] [place] [address] Deja Bush MD [address] [place] [address] documented as of this encounter Visit Diagnoses Not on filedocumented in this encounter Care Teams Gre Tutor Relationship Specialty Start Date End Date wander wray Nurse Practitioner Nurse Practitioner Adult Health 04/20/24 documented as of this encounter
--- OUTSIDE RECORDS SUMMARY | 2025-04-02 13:58 | XMS_ITS | Clinical Summary ---
Author Organization [facility] Address [address] [place] [address] Phone Care Team Providers Care Rehabilitation Liaison Name Role Phone Unavailable Primary Care Provider Unavailabl e Allergies Active Allergy Reactions Criticality Noted Date Comments Gadoteridol Hives High 08/29/2019 Hydrocodone-Acetaminoph en Nausea and Vomiting Medium 09/23/2019 Immediate/severe vomiting Iodinated Contrast Media Hives High 07/25/2014 Medications clonazePAM (KlonoPIN RAPID DISSOLVE) 1 mg Tablet, Rapid DissolveIndication s:Seizures (CMS/HCC) TAKE 1 TABLET BY MOUTH FOR SEIZURES LASTING MORE THAN 5 MINUTES. MAY REPEAT IN 30 MINUTES IF NEEDED. MAX OF 2 TABS IN 24 HOURS 10 Tablet 1 06/11/19 25 Active diphenhydrAMINE (BENADRYL) 25 mg tablet Take 50 mg by mouth every 8 hours as needed for Allergies. Active acetaminophen (TYLENOL) 325 mg tablet Take 2 Tablets (650 mg) by mouth every 4 hours as needed for Pain. 07/17/19 25 Active naloxone (NARCAN) 0.4 mg/mL Solution Inject 0.25-1 mL (0.1-0.4 mg) by intravenous injection see administration instructions. 07/17/19 25 Active levETIRAcetam (KEPPRA) 750 mg TabletIndications: Seizures (CMS/HCC) Take 1 Tablet (750 mg) by mouth 2 times daily. 180 Tablet 3 01/11/20 25 Active gabapentin (NEURONTIN) 100 mg capsuleIndications :Paresthesia of right lower extremity Take 1 Capsule (100 mg) by mouth 3 times daily. 270 Capsule 3 01/11/20 Active methylPREDNISolone (MEDROL) 32 mg tablet Take one tab night before imaging with dye. Take one tab morning of imaging with dye 2 Tablet 01/28/20 Active diphenhydrAMINE (BENADRYL) 50 mg capsule Take one tab morning of imaging with dye 1 Capsule 01/28/20 Active famotidine (PEPCID) 40 mg tablet Take one tab night before imaging with dye. Take one tab morning of imaging with dye 2 Tablet 01/28/20 Active levothyroxine 75 mcg tabletIndications: Postsurgical hypothyroidism TAKE 1 TABLET BY MOUTH EVERY DAY IN THE MORNING 90 Tablet 3 02/20/20 Active Active Problems Problem Noted Date Diagnosed Date History of thyroid cancer 11/21/2024 Postsurgical hypothyroidism 11/21/2024 Acute metabolic encephalopathy 07/21/2024 Polyuria 07/21/2024 Polydipsia 07/21/2024 Urinary urgency 07/20/2024 Urinary frequency 07/20/2024 Hyponatremia 07/20/2024 Right foot drop 07/20/2024 Weakness of right lower extremity 07/20/2024 Right leg paresthesias 07/20/2024 Acute pain 09/23/2019 Syncope 10/12/2018 Hypothyroidism 10/12/2018 Brain mass 12/08/2014 Seizure Meningioma Epilepsy Encounters Date Type Department Care Team Description 04/01/2025 External Device Data [facility] Provider, Abstract 03/04/2025 External Device Data [facility] Provider, Abstract 03/03/[address] [facility] Neurosurgery - Medical [place] [address] [place] [address] Rashaun Gay MD 02/28/2025 8:30 AM [facility] - 02/28/2025 11:59 PM [facility] Hospital Encounter [facility] General Laboratory Services [address] [facility] [address] [place] [address] [place] [address] Jarred Solomon MD Discharge Disposition: Home or Self Care 02/27/2025 Orders Only [facility] Oncology and Hematology [facility] [address] [place] [phone] Jarred Solomon MD Meningioma ([facility]/HCC) (Primary Dx) 02/19/[address] [facility] Endocrinology [address] [place] [address] Brian Rowley MD Postsurgical hypothyroidism 02/18/2025 External Device Data [facility] Provider, Abstract 02/13/2025 12:53 PM CDT - 02/13/2025 11:59 PM CDT Hospital Encounter [facility] Radiation Therapy [address] [place] [phone] Naveen Rubio MD Discharge Disposition: Home or Self Care 02/12/2025 External Device Data [facility] Provider, Abstract 02/11/2025 External Device Data [facility] Provider, Abstract 02/04/2025 External Device Data [facility] Provider, Abstract 01/30/[address] [facility] Neurosurgery - Medical [place] [address] [place] [address] Rashaun Gay MD Meningioma ([facility]/HCC) (Primary Dx) 01/29/2025 10:09 AM CDT - 01/29/2025 11:59 PM CDT Hospital Encounter [facility] [place] [address] [place] [place] [phone] Rashaun Gay MD [facility] Mri Discharge Disposition: Home or Self Care 01/29/[address] [facility] Neurosurgery - Medical [place] [address] [place] [address] Roya Martin PA Question 01/22/[address] [facility] Neurosurgery - Medical [place] [address] [place] [address] Rashaun Gay MD 01/14/2025 External Device Data [facility] Provider, Abstract 01/10/2025 11:00 AM CDT Office Visit [facility] Neurology [address] [place] [phone] Deja Bush MD Seizures (CMS/HCC); Paresthesia of right lower extremity from Last 3 Months Immunizations Immunization Administration Dates Next Due INFLUENZA VACCINE TRIVALENT MDCK, (6 MOS UP), 0.5ML (PF), IM 02/20/2024 Influenza Seasonal Unspecifi ed Formulation IM 01/14/2022,03/30/2021,02/16/2020 Family History Medical History Relation Name Comments Healthy Father Hypertension Father Cancer Maternal Grandfather Diabetes Maternal Grandmother High Cholesterol Maternal Grandmother Healthy Mother Heart Disease Paternal Grandfather High Cholesterol Paternal Grandfather Hypertension Paternal Grandfather Cancer Paternal Grandmother cervica l Heart Disease Paternal Grandmother Celiac Disease Neg Hx Relation Name Status Comments Father Alive Maternal Grandfather Maternal Grandmother Mother Alive Paternal Grandfather Paternal Grandmother Social History Tobacco Use Types Packs/Day Years Used Date Smoking Tobacco: Never Smokeless Tobacco: Never Tobacco Cessation:Counseling Given: Not Answered Alcohol Use Standard Drinks/Week Comments Not Currently [...] on file Legal Sex Female 5:21 AM [facility] Gender Identity Not on file Sexual Orientation Not on file Last Filed Vital Signs Vital Sign Reading Time Taken Comments Blood Pressure 102/62 02/13/2025 12:59 PM CDT Pulse 62 02/13/2025 12:59 PM CDT Temperature 36.3 C (97.4 F) 02/13/2025 12:59 PM CDT Respiratory Rate 18 02/13/2025 12:59 PM CDT Oxygen Saturation 98% 02/13/2025 12:59 PM CDT Inhaled Oxygen Concentration - - Weight 78 kg (172 lb) 02/13/2025 12:59 PM CDT Height 147.3 cm (4' 10) 02/13/2025 12:59 PM CDT Body Mass Index 35.95 02/13/2025 12:59 PM CDT Plan of Treatment Upcoming Encounters Date Type Department Care Team (Late st Contact Info) Description 11/24/2025 11:15 AM CDT Office Visit [facility] Endocrinology [address] [place] [address] Brian Rowley MD [address] [place] [address] 01/09/2026 11:00 AM CDT Office Visit [facility] Neurology [address] [facility] [address] [place] [address] Deja Bush MD [address] [place] [address] Health Maintenance Due Date Last Done Comments DTAP/TDAP/TD VACCINES (1 - Tdap) 1994 HEPATITIS B VACCINES (1 of 3 - 19+ 3-dose series) 1994 HPV/Cotest (21-29) 1996 CERVICAL CANCER SCREENING 2005 HPV/Cotest (30-65) 2005 PAP SMEAR 2005 BREAST CANCER SCREENING 2015 COLORECTAL SCREENING 2020 Colorectal Cancer Screening 2020 FIT-DNA Q 3 years 2020 FIT/FOBT Q 1 year 2020 Flex Sig/CT Colonography Q 5 years 2020 [place] Preventative Visit/Annual Wellness Visit 04/17/2024 Pre-Diabetes and Diabetes Screening 07/12/2027 07/11/2024 INFLUENZA VACCINE Completed 02/14/2025, , 01/14/2022, Additional history exists Medical Devices Implanted Type Area Contact Lens Blocker Device Identifier Shelf Expiration Date Model / Serial / Lot Duragen Plus 4fby8nd Dp-1022 - [id number] Implanted:Qty : 1 on 12/08/2014 by Rashaun Gay MD at [facility] Biological N/A: Brain [employer] 12/14/2016 [id number] / / [id number] Endo Clip Ii 10mm 070126 - [id number] Implanted:Qty : 1 on 09/26/2022 by Terrence Lee MD at [facility] Clip N/A: Abdomen MEDTRONIC - COVIDIEN [id number] 07/16/2027 [id number] / / [id number] Duragen + 3x3in Dp-1033 - [id number] Implanted:Qty : 1 on 07/11/2024 by Rashaun Gay MD at [facility] Graft Left: Brain [employer] 01/14/2027 [id number] / / [id number] Hemostatic Surgicel 2x14in 1950 - [id number] Implanted:Qty : 1 on 10/23/2018 by Rashaun Gay MD at [facility] Hemostatic J&J- ETHICON INC 11/14/20221950 / / [id number] Hemostatic Surgicel 2x14in 1950 - [id number] Implanted:Qty : 1 on 09/23/2019 by Rashaun Gay MD at [facility] Hemostatic N/A: Brain J&J- [employer] [id number] 08/15/20231950 / / [id number] Hemostatic Surgifoam Sz100 1973 - [id number] Implanted:Qty : 1 on 09/23/2019 by Rashaun Gay MD at [facility] Hemostatic N/A: Brain J&J- [employer]ON END[employer]UR[employer] [id number] 05/31/2023 1974 / / [id number] Hemostatic Surgiflo 8ml W/Thrombin 2994 - [id number] Implanted:Qty : 2 on 09/23/2019 by Rashaun Gay MD at [facility] Hemostatic N/A: Brain J&J- [employer] 04/16/2020 2994 / / [id number] Hemostatic Surgicel 1x2in 1960 - [id number] Implanted:Qty : 1 on 07/11/2024 by Rashaun Gay MD at [facility] Hemostatic N/A: Cranial J&J- [employer] [id number] 09/14/2026 196 / / [id number] Ultrafoam Avitene Collagen Hemostat 3 /8x5in 6392029 - [id number] Implanted:Qty : 1 on 07/11/2024 by Rashaun Gay MD at [facility] Hemostatic N/A: Cranial BARD DAVOL 10/12/2026 [id number] / / [id number] Hemostat Surgicel 2x14in 1951s - [id number] Implanted:Qty : 1 on 07/11/2024 by Rashaun Gay MD at [facility] Hemostatic N/A: Cranial J&J- [employer] [id number] 10/14/2028 195 / / [id number] Hemostatic Surgifoam Sz100 1973 - [id number] Implanted:Qty : 1 on 07/11/2024 by Rashaun Gay MD at [facility] Hemostatic N/A: Cranial J&J- [employer] END[employer] 05/23/2028 1974 / / [id number] Hemostatic Surgiflo 8ml W/ Thrombin 2994 - [id number] Implanted:Qty : 1 on 07/11/2024 by Rashaun Gay MD at [facility] Hemostatic N/A: Cranial J&J- [employer] 09/14/2025 2994 / / [id number] Hemostatic Surgiflo 8ml W/ Thrombin 2994 - [id number] Implanted:Qty : 1 on 07/11/2024 by Rashaun Gay MD at [facility] Hemostatic N/A: Cranial J&J- [employer] 10/14/2025 2994 / / [id number] Mesh Ti Matrixneuro Contour [id number] Rgd 08 - [id number] Implanted:Qty : 1 on 07/11/2024 by Rashaun Gay MD at [facility] Mesh Left: Brain J&J- DEPUY SYNTHES 4 / / Plate Matrxneuro Bur Hl Cvr 021 - [id number] Implanted:Qty : 4 on 09/23/2019 by Rashaun Gay MD at [facility] Plate N/A: Brain SYNTHES-STRATEC - MAXIFACIAL .02 1 / / Description:All Synthes cran io hardware was processed on requisition [id number] Screw Std 1.6x4mm 208-1604 - Ssterilized Dec 04, 2014 Load 49 Implanted:Qty : 8 on 12/08/2014 by Rashaun Gay MD at [facility] Screw N/A: Brain OSTEOMED 208-1604 / STERILIZE D DEC 04, 2014 LOAD 49 / Screw Auto Dr 1.6x4mm 211-1604 - Sload#22 Implanted:Qty : 10 on 10/23/2018 by Rashaun Gay MD at [facility] Screw OSTEOMED 211-1604 / LOAD#22 / STERILIZE D 5 19 Screw Matrixneuro Sd .503.104.01 - [id number] Implanted:Qty : 13 on 07/11/2024 by Rashaun Gay MD at [facility] Screw Left: Brain J&J- DEPUY SYNTHES .503.10 4.01 / / Screw Matrixneuro Sd .503.103.01 - [id number] Implanted:Qty : 1 on 07/11/2024 by Rashaun Gay MD at [facility] Screw Left: Brain J&J- DEPUY SYNTHES .503.10 3.01 / / Description:REQ [id number] Sealant Floseal W/ Adptr 10ml [id number] - [id number] Implanted:Qty : 1 on 12/08/2014 by Rashaun Gay MD at [facility] Sealant GAMA- BIOSCIENCE 02/15/2016 [id number] / / [id number] Duragen Plus 4x5in Dp-1045 - [id number] Implanted:Qty : 1 on 10/23/2018 by Rashaun Gay MD at [facility] Tissue [employer] 07/15/2021 [id number] / / [id number] Duragen Plus 2bsp5fe Dp-1033 - [id number] Implanted:Qty : 1 on 09/23/2019 by Rashaun Gay MD at [facility] Tissue N/A: Brain [employer] 07/15/2022 [id number] / / [id number] Synthecel Dura Repair 1 X 3 Implanted:Qty : 1 on 07/11/2024 by Rashaun Gay MD at [facility] Left: Brain 07/15/2025 MD.400.01 9.01S / / [id number] Explanted Type Area Contact Lens Blocker Device Identifier Shelf Expiration Date Model / Serial / Lot Plate Mesh Ostfrm Rgd 218-0002-Sp - Sload#22 Implanted:Qty: 1 on 10/23/2018 by Rashaun Gay MD at [facility] Explanted:Qty: 1 on 07/11/2024 by Rashaun Gay MD at [facility] Plate OSTEOMED 218-0002-S P / LOAD#22 / STERILIZED 5 19 Screw Matrixneuro Sd .503.104.01 - [id number] Implanted:Qty: 8 on 09/23/2019 by Rashaun Gay MD at [facility] Explanted:Qty: 8 on 07/11/2024 by Rashaun Gay MD at [facility] Screw N/A: Brain SYNTHES-STRATEC- MAXIFACIAL 04.503.104 .01 / / Procedures Procedure Name Priority Date/Time Associated Diagnosis Comments PATHOLOGY Pathology 02/28/2025 8:32 AM [facility] Encounter for laboratory test [facility] DNA AND RNA SOLID TUMOR Routine 02/27/2025 11:08 AM [facility] Meningioma (CMS/HCC) [facility] DNA AND RNA Routine 02/27/2025 11:08 AM [facility] Meningioma (CMS/HCC) MRI BRAIN W WO CONTRAST Routine 01/29/2025 11:32 AM CDT Meningioma (CMS/HCC) HEMOGLOBIN A1C Routine 07/11/2024 11:28 PM CDT from Last 3 Months or Most Recently Relevant to Health Maintenance Results * PATHOLOGY (02/28/2025 8:32 AM [facility]) CASE REPORT Surgical Pathology Report Case: [id number] Authorizing Provider: Jarred Solomon MD Collected: 02/28/2025 08:32 AM Ordering Location: [facility] Received: 02/28/2025 08:32 AM [facility] Pathologist: Viviana Mcintosh MD Specimen: Other, specify 9:10 AM [facility] FINAL DIAGNOSIS A request for [facility] was received on 02/27/[address] Jarred Solomon. This test was performed on tissue from case [id number]. The case report, slides, and blocks for this case were retrieved from archives. The pathologist reviewed the original pathology report, examined candidate slides, and selected the most appropriate block(s). This selected material was forwarded to [facility] where the test was performed. The final report will be issued directly to the requesting physician. 9:10 AM [facility] [address] CLINICAL INFORMATION Z01.89 - Encounter for laboratory test [ICD-10-CM] 9:10 AM [facility] COMMENT Special stain, immunohistochemical, and/or in situ hybridization results are interpreted with controls that demonstrate appropriate staining reactions. Note on use of immunohistochemistry reagents and in situ hybridization probes: These tests were developed and their performance characteristics determined by [facility], Department of Laboratory Medicine. It has not been cleared or approved by the U.S. Food and Drug Administration. The FDA has determined that such clearance or approval is not necessary. The test is used for clinical purposes. It should not be regarded as investigational or for research. This laboratory is certified to perform high complexity testing. Frozen section/operating room consultation, gross examination and dissection, and case sign out may have been performed in part or completely in the following laboratories: [facility], CLIA #[id number] [address] [place] [address] [facility], [place] #[id number] [address] [place] [address] [facility]/[place], [place] #[id number] [address] [place] [address] This report was created with the [employer] voice-activated dictation system. Inherent to this system is the possibility of syntax, grammar, punctuation and other errors that could impact the interpretation of the report. If there are interpretative questions about aspects of this report, please contact the performing pathologist. 9:10 AM [facility] Tissue (Other, specify) 02/28/2025 8:32 AM [facility] 02/28/2025 8:32 AM [facility] Jarred Solomon MD PATHOLOGY/CYTOLOGY ORDERABLES F inal Result [facility] CLIA# [id number] [address] [place] [address] * [facility] DNA AND RNA SOLID TUMOR (02/27/2025 11:08 AM [facility]) Reason for Study To identify somatic and germline mutations relevant to patient's cancer. 03/10/2025 4:47 PM [facility] Genetic Diseases Assessed Cancer 03/10/2025 4:47 PM [facility] Description of Ranges of DNA Sequences Examined 648 gene panel 03/10/2025 4:47 PM [facility] Overall Interpretation positive 03/10/2025 4:47 PM [facility] MSI Stable 03/10/2025 4:47 PM [facility] TMB 5.3 m/MB 03/10/2025 4:47 PM [facility] [email or web address] 03/10/2025 4:47 PM [facility] Comment:[facility] link Low Coverage Regions EPHB2, KDM5D, MYCL 03/10/2025 4:47 PM [facility] xR Result 1 NEGATIVE Negative - This report is being issued to report the results of gene rearrangement and altered splicing analysis from RNA sequencing. No gene rearrangements nor reportable altered splicing events were identified from RNA sequencing. 03/10/2025 4:47 PM [facility] Germline Variant Note No normal sample was received, therefore tumor/normal matched analysis was not performed. 03/10/2025 4:47 PM [facility] Treatment Implications Note No reportable treatment options found. 03/10/2025 4:47 PM [facility] Tissue 02/27/2025 11:0 8 AM [facility] 02/27/2025 11:08 AM [facility] Narrative This result has genomic variants that were not included in this document. us Jarred Solomon MD MOLECULAR ORDERABLES Edited Res ult - Final [facility] [address] [place] [address], [place] [phone] * MRI BRAIN W WO CONTRAST (01/29/2025 11:32 AM CDT) Anatomical Region Laterality Modality Head Magnetic Resonan ce 01/29/2025 11:3 2 AM CDT Impressions 01/29/2025 3:21 PM CDT IMPRESSION: 1. Interval increased size of the infiltrative midline parietal convexity meningioma with increased associated left frontoparietal lobe edema concerning for worsening parenchymal invasion. 2. Stable right craniotomy and meningioma resection changes without local recurrent neoplasm of the right convexity. 3. Stable left posterior fossa meningioma. DICTATION LOCATION: Location - [facility] Findings were confirmed via two-way communication with physician's speech language assistant Roya Martin on 01/29/2025 3:15 PM. Narrative 01/29/2025 3:21 PM CDT MRI BRAIN W WO CONTRAST DATE: 01/29/2025 11:32 AM CLINICAL INDICATION: Meningioma follow-up. COMPARISON: Multiple MRIs of the brain with contrast, most recent 10/15/2024. TECHNIQUE: Multi-planar multi-sequential MR imaging of the brain was performed before and after the intravenous administration of gadolinium contrast material. Contrast: 7 mL of Gadavist. FINDINGS: No acute infarct or gross acute intracranial hemorrhage identified. Unchanged scattered foci of supra and infratentorial susceptibility, likely compatible with old blood products or mineralization. There has been interval increased size of the infiltrative midline parietal convexity meningioma now measuring 4.2 x 3.8 x 4.0 cm (previously 4.2 x 3.6 x 3.9 cm) with increased patchy abnormal enhancement of the left medial parietal lobe. There is increased associated parenchymal edema of the left frontoparietal lobe concerning for worsening parenchymal invasion. Stable right craniotomy and meningioma resection changes without local recurrent neoplasm of the right convexity. There is stable nodular thickening of the left parietal convexity consistent with hemangiomas. There is a stable left posterior fossa meningioma measuring up to 1.3 cm. The ventricles are normal without evidence of hydrocephalus. There are no extra-axial fluid collections. The visualized major skull base flow voids are present. The visualized orbits are grossly unremarkable. Visualized paranasal sinuses are clear. The mastoid air cells are clear. Procedure Note Good Gloria, DO - 01/29/2025 MRI BRAIN W WO CONTRAST DATE: 01/29/2025 11:32 AM CLINICAL INDICATION: Meningioma follow-up. COMPARISON: Multiple MRIs of the brain with contrast, most recent 10/15/2024. TECHNIQUE: Multi-planar multi-sequential MR imaging of the brain was performed before and after the intravenous administration of gadolinium contrast material. Contrast: 7 mL of Gadavist. FINDINGS: No acute infarct or gross acute intracranial hemorrhage identified. Unchanged scattered foci of supra and infratentorial susceptibility, likely compatible with old blood products or mineralization. There has been interval increased size of the infiltrative midline parietal convexity meningioma now measuring 4.2 x 3.8 x 4.0 cm (previously 4.2 x 3.6 x 3.9 cm) with increased patchy abnormal enhancement of the left medial parietal lobe. There is increased associated parenchymal edema of the left frontoparietal lobe concerning for worsening parenchymal invasion. Stable right craniotomy and meningioma resection changes without local recurrent neoplasm of the right convexity. There is stable nodular thickening of the left parietal convexity consistent with hemangiomas. There is a stable left posterior fossa meningioma measuring up to 1.3 cm. The ventricles are normal without evidence of hydrocephalus. There are no extra-axial fluid collections. The visualized major skull base flow voids are present. The visualized orbits are grossly unremarkable. Visualized paranasal sinuses are clear. The mastoid air cells are clear. IMPRESSION: 1. Interval increased size of the infiltrative midline parietal convexity meningioma with increased associated left frontoparietal lobe edema concerning for worsening parenchymal invasion. 2. Stable right craniotomy and meningioma resection changes without local recurrent neoplasm of the right convexity. 3. Stable left posterior fossa meningioma. DICTATION LOCATION: Location 1 - [facility] Findings were confirmed via two-way communication with physician's speech language assistant Roya Martin on 01/29/2025 3:15 PM. Rashaun Gay MD MR ORDERABLES Final Result * (ABNORMAL) HEMOGLOBIN A1C (07/11/2024 11:28 PM CDT) HEMOGLOBIN A1C 5.9(H) <5.7 % 07/12/2024 12:06 AM CDT [facility] EST. AVG GLUCOSE, A1C 123 mg/dL 07/12/2024 12:06 AM CDT [facility] Blood Venipuncture / Unknown 07/11/2024 11:28 PM CDT 07/11/2024 11:39 PM CDT Narrative [facility] - 07/12/2024 12:06 AM CDT HGB A1C INTERPRETATION NORMAL: <5.7% PRE-DIABETES: 5.7 - 6.4% DIABETES: 6.5% OR GREATER Crow Cole MD CHEMISTRY ORDERABLES Fin al Result [facility]# [id number] [address] [place] [address] from Last 3 Months or Most Recently Relevant to Health Maintenance Insurance RX [employer] RX Member Subscriber Plan / Payer (Ef fective 2018-Present) Name:Yane Barron Relation to Subscriber:Self Name:Yane Barron Subscriber ID:Not on file Payer ID:Not on file Group ID:[id number] Type:RX Commercial Address: [place] [employer] (INTERNAL) [facility] [employer] [facility] [place]: [id number] [place] [address] Advance Directives For more information, please contact: [phone] * Full Code (Latest Code Status on File) Date Activated Date Inactivated Comments 07/20/2024 8:38 AM 07/24/2024 4:21 PM * Full Code Date Activated Date Inactivated Comments 07/11/2024 5:47 PM 07/16/2024 9:28 PM * Full Code Date Activated Date Inactivated Comments 07/11/2024 7:39 AM 07/11/2024 3:44 PM * Full Code Date Activated Date Inactivated Comments 09/26/2022 1:07 PM 09/26/2022 5:48 PM * Full Code Date Activated Date Inactivated Comments 09/26/2022 11:30 AM 09/26/2022 1:07 PM Care Teams Rehabilitation Liaison Relationship Specialty Start Date End Date wanedr wray Nurse Practitioner Nurse Practitioner Adult Health 04/20/24
--- OUTSIDE RECORDS SUMMARY | 2025-04-02 13:58 | XMS_ITS | Encounter Summary ---
Author Organization [facility] Address [address] [place] [address] Care Team Providers Care Wash Oil Pump Operator Name Role Phone Regan Jade MD Primary Care Provider [phone] Encounter Details Date Type Department Care Team (Late Contact Info) Description 09/08/2016 Chart Note [facility] Radiation Therapy [address] [place] [address] [place] [address] [place] [address] Social History Tobacco Use Types Packs/Day Years Used Date Smoking Tobacco: Never Smokeless Tobacco: Never Alcohol Use Standard Drinks/Week Comments Yes 0 (1 standard drink = 0.6 oz pur e alcohol) occasionally Comments No Sex and Gender Information Value Date Recorded Sex Assigned at Not on file 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 Gender Identity Not on file Sexual Orientation Not on file documented as of this encounter Plan of Treatment Upcoming Encounters Date Type Department Care Team (Late Contact Info) Description 11/24/2025 11:15 AM CDT Office Visit [facility] [address] [place] [address] Brian Rowley MD [address] [facility] [address] [place] [address] 01/09/2026 11:00 AM CDT Office Visit [facility] Neurology [address] [place] [address] Deja Bush MD [address] [place] [address] documented as of this encounter Visit Diagnoses Not on filedocumented in this encounter Additional Health Concerns Infection Onset Date Last Indicated Resolved Time R/O C. diff 07/20/2024 07/20/2024 07/21/2024 7:30 AM CDT R/O C. diff 07/21/2024 07/21/2024 07/22/2024 7:30 AM CDT documented as of this encounter Care Teams Wash Oil Pump Operator Relationship Specialty Start Date End Date Regan Jade MD [address] [address] PCP - General Family Practice 07/20/24 11/20/24 wander wray Nurse Practitioner Nurse Practitioner Adult Health 04/20/24 documented as of this encounter
--- OUTSIDE RECORDS SUMMARY | 2025-04-02 13:58 | XMS_ITS | Encounter Summary ---
Author Organization [facility] Address [address] [place] [address] Dr. Mayberry: [place] [address] Care Team Providers Care Inspector Assembly Name Role Phone Regan Jade MD Primary Care Provider [phone] Reason for Referral * Consult, Test & Treat (Routine) - Closed Specialty Diagnoses / Procedures Referred By Contac t Referred To Contact Nuclear Medicine Diagnoses Malignant neoplasm of thyroid gland (CMS/HCC) [address] Mayberry: [place] [address] Referral ID Status Reason Start Date Expiration Date V isits Requested Visits Authorized [id number] Closed CRS To Schedule (STL) 11/26/2010 11/26/2011 1 1 Encounter Details Date Type Department Care Team (Late st Contact Info) Description 11/26/2010 Malignant neop lasm of thyroid gland (CMS/HCC) (Primary Dx) Social History Tobacco Use Types Packs/Day Years Used Date Smoking Tobacco: Never Smokeless Tobacco: Never Alcohol Use Standard Drinks/Week Comments Yes 0 (1 standard drink = 0.6 oz pur e alcohol) occasionally Comments Unknown Sex and Gender Information Value Date Recorded Sex Assigned at Not on file 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 Gender Identity Not on file Sexual Orientation Not on file documented as of this encounter Plan of Treatment Upcoming Encounters Date Type Department Care Team (Late st Contact Info) Description 11/24/2025 11:15 AM CDT Office Visit [facility] Endocrinology [address] [facility] [place] [address] Brian Rowley MD [address] [facility] [place] [address] 01/09/2026 11:00 AM CDT Office Visit [facility] Neurology [address] [place] [address] Deja Bush MD [address] [facility] [place] [address] Pending Results Name Type Priority Associated Diagnoses Date /Time AMB REFERRAL TO NUCLEAR MEDICINE Outpatient Referral Routine Malignant neoplasm of thyroid gland (CMS/HCC) 12/15/2010 10:01 AM CDT documented as of this encounter Visit Diagnoses Diagnosis Malignant neoplasm of thyroid gland (CMS/HCC)- Primary Malignant neoplasm of thyroid gland documented in this encounter Additional Health Concerns Infection Onset Date Last Indicated Resolved Time R/O C. diff 07/20/2024 07/20/2024 07/21/2024 7:30 AM CDT R/O C. diff 07/21/2024 07/21/2024 07/22/2024 7:30 AM CDT documented as of this encounter Care Teams Inspector Assembly Relationship Specialty Start Date End Date Regan Jade MD [address] [place] [address] PCP - General Family Practice 07/20/24 11/20/24 wander wray Nurse Practitioner Nurse Practitioner Adult Health 04/20/24 documented as of this encounter
== END 2025-04-02 11:43 | disposition home or self-care (01) ==
PROVIDERS: PCP Nurse Practitioner Family; Visit Provider Nurse Practitioner Family
DX: K76.0 Fatty (change of) liver, not elsewhere classified (principal); D32.9 Benign neoplasm of meninges, unspecified; E78.5 Hyperlipidemia, unspecified; E03.9 Hypothyroidism, unspecified; G40.909 Epilepsy, unspecified, not intractable, without status epilepticus; Z79.899 Other long term (current) drug therapy; E66.9 Obesity, unspecified; E55.9 Vitamin D deficiency, unspecified
CPT/HCPCS: 36415; 80053; 80061; 82306; 85027; 99202; G0463